=== PATIENT | female | born 1990 | race Caucasian/White ===

== ENCOUNTER 2020-06-12 07:07 | Inpatient (IN) | payer OTHER ==
[~2020-06-12 07:07] MED LIST: Bupivacaine 0.25% 10 ML SDV ONE; Lidocaine 1.5% with EPINEPHrine 1:200,000 5 ML Amp ONE
--- NOTE | 2020-06-12 07:23 | PCM.LDHP ---
L&D History of Present Illness - General Date of Service: 06/12/20 Admit Problem/Dx: Admission Diagnosis/Problem Admission Diagnosis/Problem 06/12/20 07:13 Ava is a 29-year-old 1 para 0 white female who is presently at 37- 0/7 weeks gestational age with an MADELYN of 07/03/2020 who is admitted for medical induction of labor secondary to gestational hypertension and suspected growth restriction. Source of Information: Patient History Limitations: Reports: No Limitations - History of Present Illness Introduction:: Ava is a 29-year-old 1 para 0 white female who is presently at 37- 0/7 weeks gestational age with an MADELYN of 07/03/2020 who is admitted for medical induction of labor secondary to gestational hypertension and suspected growth restriction. Been seen on a very frequent basis over the last 2 to 3 weeks. Her blood pressures in clinic and at home have ranged in the high 130s to 150 range systolically and the high 80s to 90s diastolically. Her clinical history includes a history of headaches over the last 10 days, increased swelling to 1+ pitting edema in bilateral lower extremities and 3+/4 deep tendon reflexes in upper and lower extremities. Laboratory testing is indicated a uric acid of 6.8. Her liver function studies and kidney function studies however are otherwise normal. Discussion was held with patient as to the recommendation per the [employer] education analyst for induction of labor at 37 weeks. She is interested in pursuing this. Labor induction process, risk, benefits and alternatives are discussed in detail with patient. 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 MADELYN of 07/03/2020 as determined by her certain last menstrual period starting 09/27/2019 and supported by an ultrasound done on 12/20/2019 and multiple ultrasounds done recently. Patient had menarche at age 13. Cycles q. 28 to 30 days. No control at the time of conception. Last menstrual period was certain. It lasted for approximately 5 days. Patient reports no STIs and no abnormal Pap smears. course: Patient was initially seen for this on 12/20/2019. Ul trasound on that date was consistent with her LMP dating. Patient was seen on a very regular basis throughout the . Her weight gain was from 150.6 pounds to 185.8 pounds for a 35 pound increase. Fundal height growth was appropriate during the course of the . Blood pressures began increasing at approximately 29 weeks and have steadily increased to the present time. Symptoms of hypertension and preeclampsia are as indicated above. These are progressive in nature. Patient declined flu vaccination. Her [place] depression screen score on 02/27/2020 was 7/30. Group B strep screen was negative. Patient declined genetic testing. She plans to breast-feed. Her Tdap was administered on 04/23/2020. Her MMR showed that she is rubella immune. Laboratory testing : Blood is old positive with a negative antibody screen. First labs showed a hemoglobin of 13.7 g/dL and a platelet count of 309,000. She is rubella immune. RPR is nonreactive. Urine culture was negative. Hepatitis B surface antigen and HIV assays were both negative. Chlamydia and gonorrhea assays were both negative. Second trimester hemoglobin was 11.3 g/dL and patient was started on iron therapy at 325 mg of ferrous sulfate daily. Her platelet count at that time was 270,000. Her 1 hour GTT was normal at 123. Repeat hemoglobin on 05/23/2020 was 11.9. Platelets were 272,000 at that time. RPR on 04/06/2020 was nonreactive. Group B strep screen was negative. Allergies: None Medications: 1. vitamins 1 daily 2. Albuterol sulfate inhaler as needed. Patient is use this infrequently. 3. Ferrous sulfate 325 mg p.o. daily. Past medical history: 1. Mild asthma which is seasonal in nature. Past surgical history: 1. Tonsillectomy and adenoidectomy 2. Mystic teeth extraction. 3. Sinus surgery Family history: Father is alive, diabetic with some recent complications. Mother is alive but undergoing radiation therapy for breast cancer. 3 sisters are alive and well. Maternal grandmother is secondary to causes unknown. Maternal grandfather is secondary to Alzheimer's disease. Paternal grandmother is secondary to lung cancer at age 84. Paternal grandfather deceasedcause unknown. There is no family history of bleeding, blood clotting disorders, anesthesia related issues, related issues. There is breast cancer reported on both mother and father side. Social history: Patient is . is Siddhartha. 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 She does not use any significant also alcohol, drugs or tobacco. She and her live in [place], [place]. Review of systems: In general patient has no concerns other than those listed in her history of present illness.. Skin: Negative Lungs: No infectious symptoms or shortness of breath Cardiovascular: No chest pain or exercise intolerance Breasts: No lumps, changes in size, pain, dimpling, discharge or axillary or supraclavicular concerns. See changes GI: Negative : Changes associated with . Musculoskeletal: Negative Neurological: Negative Extremities show bilateral pedal edema Physical exam: In general the patient is well-developed, well-nourished, pleasant female of stated age in no acute distress. Skin is warm dry without lesions. HEENT, neck and back within normal limits. Lungs are clear with good breath sounds in all lung santiago. Cardiovascular exam shows regular and rhythm without murmurs. Abdomen is gravid with fundal height at 36.5 cm. Baby in vertex presentation by Ad maneuvers. Genital per duration shows cervix to be 2+ centimeters/70% effaced/very soft/- 3/mid position. Extremities show 1+ by lower extremity edema which is progressive in nature over the last visit. Neurological exam shows deep tendon reflexes that are +3/4 bilaterally in lower and upper extremities. No clonus is noted. - Related Data Allergies/Adverse Reactions: Allergies Allergy/AdvReac Type Severity Reaction Status Date / Time No Known Allergies Allergy Verified 06/06/20 17:26 Home Medications: Home Meds Acetaminophen [Tylenol] 650 mg PO Q6H PRN 06/08/20 [History] Pnv No.95/Ferrous Fum/Folic AC [ Tablet] 1 each PO DAILY 06/08/20 [History] H&P Review of Systems - Review of Systems: Review Of Systems: See Below L&D Exam - Exam Exam: See Below Problem List Initiated/Reviewed/Updated: Yes Assessment/Plan Comment:: 1. 37-0/7-week intrauterine pregnancygestational hypertensionprogressive in nature 2. BPP done 06/11/2020score: 03/31. Baby noted to be at the 14th percentile growth. 3. Patient desires to do breast-feeding 4. Group B strep is negative 5. Patient is open to neuro for analgesia in labor 6. Patient is rubella immune 7. Patient declined flu vaccination. She did have her Tdap administered on 04/23/2020. Plan: 1. Pitocin induction of labor with artificial rupture membranes augmentation when possible 2. CBC, RPR, COVID-19 testing upon admission 3. Routine labor care 4. Support breast-feeding decision. 5. Monitor blood pressure and heart rate tracings closely.
[2020-06-12] MEDS ORDERED: Nalbuphine 10 MG/ML Syringe IVPUSH PRN (07:40)
[2020-06-12] MEDS ORDERED: Ondansetron 4 MG/2 ML SDV IVPUSH PRN (07:40)
[2020-06-12] MEDS ORDERED: Sodium Chloride 0.9% 10 ML Syringe FLUSH PRN (07:40)
[2020-06-12] MEDS ORDERED: Calcium Carbonate 500 MG Tab.Chew PO PRN (07:40)
[2020-06-12] MEDS ORDERED: Oxytocin/Lactated Ringers 10 UNIT/1,000 ML BAG IV SCH ×2 (07:45)
[2020-06-12] MEDS: Lactated Ringers 1,000 ML IV SCH ×3 (07:59→20:26)
[2020-06-12] MEDS ORDERED: diphenhydrAMINE 50 MG/ML SDV IVPUSH PRN (14:16)
[2020-06-12] MEDS ORDERED: fentaNYL 100 MCG/2 ML SDV EPIDUR PRN (14:16)
[2020-06-12] MEDS ORDERED: ePHEDrine 50 MG/ML SDV IVPUSH PRN (14:16)
--- NOTE | 2020-06-12 14:27 | PCM.PREANE ---
Preanesthetic Assessment - Procedure Proposed Procedure: leanne - Anesthesia/Transfusion/Family Hx Anesthesia History: Prior Anesthesia Without Reaction Family History of Anesthesia Reaction: No Transfusion History: No Prior Transfusion(s) - Review of Systems General: No Symptoms Pulmonary: No Symptoms Cardiovascular: No Symptoms Gastrointestinal: No Symptoms Neurological: No Symptoms Other: Reports: Sinus Problem (surgery) - Physical Assessment Vital Signs: Last Vital Signs Temp 98.6 F 06/12/20 07:26 Pulse Resp 18 06/12/20 07:26 BP 128/81 06/12/20 07:26 Pulse Ox 98 06/12/20 07:26 Height: 5 ft 3 in Weight: 84.822 kg ASA Class: 2 Mental Status: Alert & Oriented x3 Airway Class: Mallampati = 1 Dentition: Reports: Normal Dentition Thyro-Mental Finger Breadths: 3 Mouth Opening Finger Breadths: 3 ROM/Head Extension: Full Lungs: Clear to Auscultation, Normal Respiratory Effort Cardiovascular: Regular Rate, Regular Rhythm - Lab Values: Laboratory Last Values WBC 10.56 K/mm3 (3.98-10.04) H 06/12/20 07:53 RBC 3.83 M/mm3 (3.98-5.22) L 06/12/20 07:53 Hgb 11.5 gm/dl (11.2-15.7) 06/12/20 07:53 Hct 35.5 % (34.1-44.9) 06/12/20 07:53 MCV 92.7 fl (79.4-94.8) 06/12/20 07:53 MCH 30.0 pg (25.6-32.2) 06/12/20 07:53 MCHC 32.4 g/dl (32.2-35.5) 06/12/20 07:53 RDW Std Deviation 48.2 fL (36.4-46.3) H 06/12/20 07:53 Plt Count 256 K/mm3 (182-369) 06/12/20 07:53 MPV 9.8 fl (9.4-12.3) 06/12/20 07:53 Neut % (Auto) 77.8 % (34.0-71.1) H 06/12/20 07:53 Lymph % (Auto) 12.8 % (19.3-51.7) L 06/12/20 07:53 Sanborn % (Auto) 8.0 % (4.7-12.5) 06/12/20 07:53 Eos % (Auto) 0.8 (0.7-5.8) 06/12/20 07:53 Baso % (Auto) 0.1 % (0.1-1.2) 06/12/20 07:53 Neut # (Auto) 8.22 K/mm3 (1.56-6.13) H 06/12/20 07:53 Lymph # (Auto) 1.35 K/mm3 (1.18-3.74) 06/12/20 07:53 Sanborn # (Auto) 0.85 K/mm3 (0.24-0.36) H 06/12/20 07:53 Eos # (Auto) 0.08 K/mm3 (0.04-0.36) 06/12/20 07:53 Baso # (Auto) 0.01 K/mm3 (0.01-0.08) 06/12/20 07:53 SARS-CoV-2 RNA (ANIL) Negative (NEGATIVE) 06/12/20 07:30 Blood Type O POSITIVE 06/12/20 07:53 Gel Antibody Screen Negative 06/12/20 07:53 - Allergies Allergies/Adverse Reactions: Allergies Allergy/AdvReac Type Severity Reaction Status Date / Time No Known Allergies Allergy Verified 06/06/20 17:26 - Blood Blood Available: No - Acknowledgements Anesthesia Type Planned: Epidural Pt an Appropriate Candidate for the Planned Anesthesia: Yes Alternatives and Risks of Anesthesia Discussed w Pt/Guardian: Yes Pt/Guardian Understands and Agrees with Anesthesia Plan: Yes PreAnesthesia Questionnaire - Past Health History Medical/Surgical History: Denies Medical/Surgical History Cardiovascular History: Reports: Hypertension (reason for induction and small baby) Respiratory History: Reports: Other (See Below) (uses inhaler very seldom for colds) Gastrointestinal History: Reports: GERD : 1 (37 ) Para: 0 Musculoskeletal History: Reports: None Immunologic History: Reports: None Oncologic (Cancer) History: Reports: None - Past Surgical History HEENT Surgical History: Reports: Naso-Sinus Surgery, Oral Surgery, Tonsillectomy - SUBSTANCE USE Tobacco Use Status *Q: Never Tobacco User Tobacco Use Within Last Twelve Months: No Second Hand Smoke Exposure: No Days Per Week of Alcohol Use: 0 Recreational Drug Use History: No - HOME MEDS Home Medications: Home Meds Acetaminophen [Tylenol] 650 mg PO Q6H PRN 06/08/20 [History] Pnv No.95/Ferrous Fum/Folic AC [ Tablet] 1 each PO DAILY 06/08/20 [History] - CURRENT (IN HOUSE) MEDS Current Meds: Current Medications Calcium Carbonate/Glycine (Tums) 1,000 mg PO Q2H PRN PRN Reason: Indigestion Diphenhydramine HCl (Benadryl) 25 mg IVPUSH Q6H PRN PRN Reason: pruritis Ephedrine Sulfate (Ephedrine Sulfate) 5 mg IVPUSH ASDIRECTED PRN PRN Reason: Hypotension Fentanyl (Sublimaze) 100 mcg EPIDUR Q3H PRN PRN Reason: Pain Fentanyl/Bupivacaine HCl (Fentanyl/Bupivacaine/Ns 2 Mcg-0.125% 100 Ml) 100 ml EPIDUR ASDIRECTED PRN PRN Reason: Pain Oxytocin/Lactated Ringer's (Pitocin In Lr 10 Units/1,000 Ml) 10 unit in 1,000 mls @ 12 mls/hr IV TITRATE ELLIOTT; Protocol Last Titration: 06/12/20 13:51 Dose: 16 munits/min, 96 mls/hr Documented by: Oxytocin/Lactated Ringer's (Pitocin In Lr 10 Units/1,000 Ml) 10 unit in 1,000 mls @ 100 mls/hr IV .CONTINUOUS ELLIOTT Lactated Ringer's (Ringers, Lactated) 1,000 mls @ 100 mls/hr IV ASDIRECTED [facility] Last Admin: 06/12/20 07:59 Dose: 100 mls/hr Documented by: Nalbuphine HCl (Nubain) 10 mg IVPUSH Q2H PRN PRN Reason: Pain Ondansetron HCl (Zofran) 4 mg IVPUSH Q4H PRN PRN Reason: Nausea/Vomiting Sodium Chloride (Saline Flush) 10 ml FLUSH ASDIRECTED PRN PRN Reason: Keep Vein Open
[2020-06-12] MEDS: Bupivacaine/fentaNYL/NS 100 ML Bag EPIDUR PRN ×2 (15:10→21:05)
[2020-06-12] MEDS ORDERED: Oxytocin/Lactated Ringers 20 UNIT/1,000 ML BAG IV SCH (18:00)
[2020-06-12] MEDS ORDERED: Acetaminophen 325 MG Tab PO PRN ×2 (21:22→23:53)
--- NOTE | 2020-06-12 23:48 | PCM.SN.2 ---
- Free Text/Narrative Note: Delivery note: Ava is a 29-year-old 1 para 0 white female who is presently at 37- 0/7 weeks gestational age with an MADELYN of 07/03/2020 who is admitted for medical induction of labor secondary to gestational hypertension and suspected growth restriction. Been seen on a very frequent basis over the last 2 to 3 weeks. Her blood pressures in clinic and at home have ranged in the high 130s to 150 range systolically and the high 80s to 90s diastolically. Her clinical history includes a history of headaches over the last 10 days, increased swelling to 1+ pitting edema in bilateral lower extremities and 3+/4 deep tendon reflexes in upper and lower extremities. Laboratory testing is indicated a uric acid of 6.8. Her liver function studies and kidney function studies however are otherwise normal. Discussion was held with patient as to the recommendation per the [employer] small engine trainer for induction of labor at 37 weeks. Ava underwent Pitocin induction and, when the cervix was 3+ centimeters, AROM augmentation with resultant clear amniotic fluid. She progressed somewhat, underwent an epidural for labor analgesia. She has steadily dilated to approximately 5 cm at which the baby presented with a hand presentation. She was monitored and continued dilation to approximately 9 cm at which time hand and wrist presentation were again noted. With tweaking the hand and some manipulation of the hand, the hand was then reduced behind the presenting head and with next contraction the head descended into the pelvis. With this the hand presentation was reduced. Patient began pushing and within approximately half an hour at 2315 she delivered a viable, gomez, male with Apgars of 5 and 9, a weight of 5 pounds 9 ounces (2520 g), a length of 19.5 inches in a direct occiput anterior position. After delivery the baby was placed on mom's abdomen and the umbilical cord was allowed to pulsate for approximately 1 to 2 minutes. Cord was then cut and baby was taken to the warmer for stimulation, drying and blow-by O2. With this baby responded well and did fine. Pitocin was increased to 500 cc per hour to increase uterine tone and decrease likelihood of bleeding. The perineum appeared intact with only superficial, hemostatically intact lacerations that required no suturing. The placenta delivered in a Baxter presentation, appeared intact and complete and was discarded per patient desire. Umbilical cord had 3 vessels. Estimated blood loss was 200 cc, patient plans to breast-feed. Condition: Good
[2020-06-12] MEDS ORDERED: Docusate Sodium 100 MG Cap PO PRN (23:53)
[2020-06-12] MEDS ORDERED: Benzocaine/Menthol 20%-0.5% Spray 56 GM Canister TOP PRN (23:53)
[2020-06-12] MEDS ORDERED: Ibuprofen 600 MG Tab PO PRN (23:53)
[2020-06-12] MEDS ORDERED: Witch Hazel Medicated Pads 40/Jar TOP PRN (23:53)
--- NOTE | 2020-06-13 06:46 | PCM.SN.2 ---
- Free Text/Narrative Note: note: Patient is doing well in the period. Minimal lochia, voiding well, ambulated without problems. Nursing without concerns. Blood pressures are normalized. Vital signs stable. Patient is afebrile. Patient is afebrile, vital signs are stable Abdomen is flat, soft, uterus is below the umbilicus and is firm and nontender. Legs are nontender. Assessment: recovery going well. Plan: Routine care. Patient be discharged home within the next 24-48 hours.
[2020-06-13] MEDS: Prenatal Multivitamin with Calcium/Folic Acid/Iron Tab PO SCH (09:13)
--- NOTE | 2020-06-13 11:07 | PCM48HPAN ---
Post Anesthesia Note - EVALUATION WITHIN 48HRS OF ANESTHETIC Vital Signs in Normal Range: Yes Patient Participated in Evaluation: Yes Respiratory Function Stable: Yes Airway Patent: Yes Cardiovascular Function Stable: Yes Hydration Status Stable: Yes Pain Control Satisfactory: Yes Nausea and Vomiting Control Satisfactory: Yes Mental Status Recovered: Yes Vital Signs: Last Vital Signs Temp 37.6 C 06/12/20 21:29 Pulse Resp 18 06/12/20 07:26 BP 128/81 06/12/20 07:26 Pulse Ox 98 06/12/20 07:26
--- NOTE | 2020-06-14 08:43 | PCM.SN.2 ---
- Free Text/Narrative Note: note: day #2 Patient is doing well in the period. Minimal lochia, voiding well, ambulated without problems. Nursing without concerns. Patient is feeling well. She reports she feels better than yesterday morning. Patient is afebrile, vital signs are stableblood pressures running that normal to high normal range. Abdomen is flat, soft, uterus is below the umbilicus and is firm and nontender. Legs are nontender. Some mild edema noted. Assessment: 1. recovery going well. 2. Gestational hypertension with recovery. With late delivery at just before midnight recommending staying till day #2. Plan: Routine care. Patient be discharged home within the next 24-48 hours.
--- NOTE | 2020-06-14 13:54 | PCM.DCSUM1 ---
Discharge Summary - Hospital Course Free Text/Narrative:: Ava is a 29-year-old 1 para 1001 white female who upon admission was 37-0/7 weeks gestational age with an AMDELYN of 07/03/2020 who was admitted for medical induction of labor secondary to gestational hypertension and suspected growth restriction. She had been seen on a very frequent basis over the last 2 to 3 weeks. Her blood pressures in clinic and at home have ranged in the high 130s to 150 range systolically and the high 80s to 90s diastolically. Her clinical history includes a history of headaches over the last 10 days, increased swelling to 1+ pitting edema in bilateral lower extremities and 3+/4 deep tendon reflexes in upper and lower extremities. Laboratory testing indicated a uric acid of 6.8. Her liver function studies and kidney function studies however are otherwise normal. Discussion was held with patient as to the recommendation per the [employer] for induction of labor at 37 weeks. Ava underwent Pitocin induction and, when the cervix was 3+ centimeters, AROM augmentation with resultant clear amniotic fluid. She progressed somewhat, underwent an epidural for labor analgesia. She has steadily dilated to approximately 5 cm at which the baby presented with a hand presentation. She was monitored and continued dilation to approximately 9 cm at which time hand and wrist presentation were again noted. With tweaking the hand and some manipulation of the hand, the hand was then reduced behind the presenting head and with next contraction the head descended into the pelvis. With this the hand presentation was reduced. Patient began pushing and within approximately half an hour at 2315 she delivered a viable, gomez, male infant with Apgars of 5 and 9, a weight of 5 pounds 9 ounces (2520 g), a length of 19.5 inches in a direct occiput anterior position. After delivery the baby was placed on mom's abdomen and the umbilical cord was allowed to pulsate for approximately 1 to 2 minutes. Cord was then cut and baby was taken to the warmer for stimulation, drying and blow-by O2. With this baby responded well and did fine. Pitocin was increased to 500 cc per hour to increase uterine tone and decrease likelihood of bleeding. The perineum appeared intact with only superficial, hemostatically intact lacerations that required no suturing. The placenta delivered in a Baxter presentation, appeared intact and complete and was discarded per patient desire. Umbilical cord had 3 vessels. Estimated blood loss was 200 cc, patient plans to breast-feed. patient is doing well. Her blood pressures have normalized. She is nursing without problems, has minimal lochia and voiding without concerns. She is desiring discharge home. Condition: Good Diagnosis: Stroke: No - Discharge Data Discharge Date: 06/14/20 Discharge Disposition: Home, Self-Care 01 Condition: Good - Referral to Home Health Primary Care Physician: Albert Rivas MD - Patient Instructions Diet: Regular Diet as Tolerated (Nursing diet with increased calories and calcium as recommended) Activity: As Tolerated (No intercourse or tampons until bleeding resolves) Driving: May Drive Today Showering/Bathing: May Shower Showering/Bathing, Other: May take a bath Notify Provider of: Fever, Increased Pain, Swelling and Redness, Nausea and/or Vomiting - Discharge Plan Home Medications: Home Meds Acetaminophen [Tylenol] 650 mg PO Q6H PRN 06/08/20 [History] Pnv No.95/Ferrous Fum/Folic AC [ Tablet] 1 each PO DAILY 06/08/20 [History] Docusate Sodium [Colace] 100 mg PO BID PRN cap 06/14/20 [Rx] Ibuprofen [Motrin] 600 mg PO Q4H PRN tablet 06/14/20 [Rx] witch Dnanie [Tucks] 1 pad TOP ASDIRECTED PRN pad 06/14/20 [Rx] Referrals: Albert Rivas MD [Primary Care Provider] - (Return to clinicDr. Rivas2 weeks.) - Discharge Summary/Plan Comment DC Time >30 min.: No Discharge Summary/Plan Comment: Discharge instructions: 1. Discharge home 2. Diet, activity and follow-up discussed with patient. Recommend nursing diet with increased calories and calcium. 3. Precautions given concern increased pain, bleeding, temperature, signs/symptoms of DVT/PE. 4. Medications per home medication was printed, discussed with and given to the patient. 5. Return to clinic-Dr. Rivas[facility] in 2 weeks. Diagnosis: Term -delivered Condition: Good - Patient Data Vitals - Most Recent: Last Vital Signs Temp 36.4 C 06/14/20 08:59 Pulse 91 06/14/20 08:59 Resp 15 06/14/20 08:59 BP 126/71 06/14/20 08:59 Pulse Ox 97 06/14/20 08:59 Weight - Most Recent: 84.822 kg I&O - Last 24 hours: Intake & Output 06/13/20 06/14/20 06/14/20 22:59 06:59 14:59 Intake Total 240 Balance 240 Med Orders - Current: Current Medications Acetaminophen (Tylenol) 650 mg PO Q4H PRN PRN Reason: mild pain or fever Last Admin: 06/13/20 09:13 Dose: 650 mg Documented by: Benzocaine/Menthol (Dermoplast Pain Relief [place]) 0 gm TOP ASDIRECTED PRN PRN Reason: Perineal Comfort Measure Docusate Sodium (Colace) 100 mg PO BID PRN PRN Reason: Constipation Ibuprofen (Motrin) 600 mg PO Q4H PRN PRN Reason: Mild pain or fever Prenat Multivit/Transmission Operator/Iron/Folic Ac ( Plus Iron) 1 each PO DAILY ELLIOTT Last Admin: 06/13/20 09:13 Dose: 1 each Documented by: Marylou Perdue) 1 pad TOP ASDIRECTED PRN PRN Reason: Perineal Comfort Measure Discontinued Medications Acetaminophen (Tylenol) 650 mg PO Q4H PRN PRN Reason: Fever Last Admin: 06/12/20 21:29 Dose: 650 mg Documented by: Bupivacaine HCl (Sensorcaine-Mpf 0.25%) 10 ml .ROUTE .STK-MED ONE Stop: 06/12/20 00:01 Calcium Carbonate/Glycine (Tums) 1,000 mg PO Q2H PRN PRN Reason: Indigestion Diphenhydramine HCl (Benadryl) 25 mg IVPUSH Q6H PRN PRN Reason: pruritis Ephedrine Sulfate (Ephedrine Sulfate) 5 mg IVPUSH ASDIRECTED PRN PRN Reason: Hypotension Fentanyl (Sublimaze) 100 mcg EPIDUR Q3H PRN PRN Reason: Pain Last Admin: 06/12/20 15:10 Dose: 100 mcg Documented by: Fentanyl/Bupivacaine HCl (Fentanyl/Bupivacaine/Ns 2 Mcg-0.125% 100 Ml) 100 ml EPIDUR ASDIRECTED PRN PRN Reason: Pain Last Admin: 06/12/20 21:05 Dose: 100 ml Documented by: Oxytocin/Lactated Ringer's (Pitocin In Lr 10 Units/1,000 Ml) 10 unit in 1,000 mls @ 12 mls/hr IV TITRATE ELLIOTT; Protocol Last Titration: 06/12/20 20:25 Dose: Infused Documented by: Oxytocin/Lactated Ringer's (Pitocin In Lr 10 Units/1,000 Ml) 10 unit in 1,000 mls @ 100 mls/hr IV .CONTINUOUS ELLIOTT Lactated Ringer's (Ringers, Lactated) 1,000 mls @ 100 mls/hr IV ASDIRECTED ELLIOTT Last Admin: 06/12/20 20:26 Dose: 100 mls/hr Documented by: Oxytocin/Lactated Ringer's (Pitocin In Lr 20 Units/1,000 Ml) 20 unit in 1,000 mls @ 60 mls/hr IV TITRATE ELLIOTT; Protocol Last Admin: 06/12/20 18:18 Dose: 60 mls/hr Documented by: Lidocaine/Epinephrine (Xylocaine-Mpf 1.5% W/Epinephrine 1:200,000) 5 ml .ROUTE .[facility]-MED ONE Stop: 06/12/20 00:01 Nalbuphine HCl (Nubain) 10 mg IVPUSH Q2H PRN PRN Reason: Pain Ondansetron HCl (Zofran) 4 mg IVPUSH Q4H PRN PRN Reason: Nausea/Vomiting Sodium Chloride (Saline Flush) 10 ml FLUSH ASDIRECTED PRN PRN Reason: Keep Vein Open
[2020-06-14] MEDS: Prenatal Multivitamin with Calcium/Folic Acid/Iron Tab PO SCH (16:33)
== END 2020-06-14 14:20 | disposition home or self-care (01) | DRG 807 ==
LOC: JD.OB 07:07 → OBSVTOIN 23:15 → JD.OB 23:16
PROVIDERS: ADMIT Obstetrics & Gynecology; ATTEND Obstetrics & Gynecology
PROC: 10E0XZZ Delivery of Products of Conception, External Approach (ICD-10-PCS; principal; 2020-06-12)
PROC: 10907ZC Drainage of Amniotic Fluid, Therapeutic from Products of Conception, Via Natural or Artificial Opening (ICD-10-PCS; 2020-06-12)
PROC: 3E033VJ Introduction of Other Hormone into Peripheral Vein, Percutaneous Approach (ICD-10-PCS; 2020-06-12)
PROC: 3E0R3BZ Introduction of Anesthetic Agent into Spinal Canal, Percutaneous Approach (ICD-10-PCS; 2020-06-12)
PROC: 00HU33Z Insertion of Infusion Device into Spinal Canal, Percutaneous Approach (ICD-10-PCS; 2020-06-12)
DX: O13.4 Gestational [pregnancy-induced] hypertension without significant proteinuria, complicating childbirth (principal); Z37.0 Single live birth; O36.5930 Maternal care for other known or suspected poor fetal growth, third trimester, not applicable or unspecified; Z3A.37 37 weeks gestation of pregnancy
CPT/HCPCS: 01967; 36415; 51701; 51702; 59020; 59409; 81001; 85025; 86592; 86850; 86900; 86901; A9270-GY; J2590; J3010; J3490; J7120; U0002

== ENCOUNTER 2022-04-09 01:54 | Inpatient (IN) | payer OTHER ==
[~2022-04-09 01:54] MED LIST changes: -Lidocaine 1.5% with EPINEPHrine 1:200,000 5 ML Amp ONE
[2022-04-09] MEDS ORDERED: Nalbuphine HCl 10 MG/ 1ML Amp IVPUSH PRN (02:34)
[2022-04-09] MEDS ORDERED: Calcium Carbonate 500 MG Tab.Chew PO PRN (02:34)
[2022-04-09] MEDS ORDERED: Lidocaine 1% 50 ML MDV INJECT PRN (02:34)
[2022-04-09] MEDS ORDERED: Ondansetron 4 MG/2 ML SDV IVPUSH PRN (02:34)
[2022-04-09] MEDS ORDERED: Oxytocin/Lactated Ringers 10 UNIT/1,000 ML BAG IV SCH ×2 (02:45)
[2022-04-09] MEDS: Lactated Ringers 1,000 ML IV SCH ×2 (02:56→03:52)
[2022-04-09] MEDS ORDERED: fentaNYL 100 MCG/2 ML SDV EPIDUR PRN (03:16)
[2022-04-09] MEDS ORDERED: diphenhydrAMINE 50 MG/ML SDV IVPUSH PRN (03:16)
[2022-04-09] MEDS ORDERED: ePHEDrine 50 MG/ML SDV IVPUSH PRN (03:16)
[2022-04-09] MEDS ORDERED: Bupivacaine/fentaNYL/NS 100 ML Bag EPIDUR PRN (03:16)
[2022-04-09] MEDS ORDERED: Benzocaine/Menthol 20%-0.5% Spray 78 GM Cannister TOP PRN (10:03)
[2022-04-09] MEDS ORDERED: Acetaminophen 325 MG Tab PO PRN (10:03)
[2022-04-09] MEDS ORDERED: Docusate Sodium 100 MG Cap PO PRN (10:03)
[2022-04-09] MEDS ORDERED: Witch Hazel Medicated Pads 40/Jar TOP PRN (10:03)
[2022-04-09] MEDS: Ibuprofen 600 MG Tab PO PRN (13:01)
[2022-04-10] MEDS: Ibuprofen 600 MG Tab PO PRN ×2 (00:51→08:59)
[2022-04-10] MEDS ORDERED: Ferrous Sulfate 324 MG Tab.EC PO SCH (09:00)
[2022-04-10] MEDS ORDERED: Prenatal Multivitamin with Calcium/Folic Acid/Iron Tab PO SCH (09:00)
== END 2022-04-10 11:52 | disposition home or self-care (01) | DRG 807 ==
LOC: JD.OBCHECK 01:54 → JD.OB 01:58 → JD.OBCHECK 02:33 → JD.OB 02:34 → OBSVTOIN 09:31 → JD.OB 09:32
PROVIDERS: ADMIT Obstetrics & Gynecology; ATTEND Obstetrics & Gynecology
PROC: 10E0XZZ Delivery of Products of Conception, External Approach (ICD-10-PCS; principal; 2022-04-09)
PROC: 0KQM0ZZ Repair Perineum Muscle, Open Approach (ICD-10-PCS; 2022-04-09)
PROC: 3E033VJ Introduction of Other Hormone into Peripheral Vein, Percutaneous Approach (ICD-10-PCS; 2022-04-09)
PROC: 3E0R3BZ Introduction of Anesthetic Agent into Spinal Canal, Percutaneous Approach (ICD-10-PCS; 2022-04-09)
PROC: 00HU33Z Insertion of Infusion Device into Spinal Canal, Percutaneous Approach (ICD-10-PCS; 2022-04-09)
DX: O99.62 Diseases of the digestive system complicating childbirth (principal); Z37.0 Single live birth; O70.1 Second degree perineal laceration during delivery; Z3A.39 39 weeks gestation of pregnancy; K21.9 Gastro-esophageal reflux disease without esophagitis
CPT/HCPCS: 36415; 51702; 59025; 59409; 85027; 86592; 86850; 86900; 86901; A9270-GY; J2590; J3010; J3490; J7120